=== PATIENT | male | born 1980 ===

== ENCOUNTER 2019-02-02 11:32 | Observation (INO) | payer SELFPAY ==
[~2019-02-02] VITALS: Ht 180.3 cm; Wt 72.6 kg
[2019-02-02 12:10] LABS: Source, Urine Clean Catch
[2019-02-02 12:30] LABS: Appearance, Urine Clear (Clear); Bilirubin, Urine Neg (Neg); Blood, Urine Neg (Neg); Color, Urine Yellow (P-Yellow); Glucose Qualitative, Urine Neg (Neg); Ketones, Urine Neg (Neg); Leukocyte Esterase, Urine 1+ (Neg); Nitrite, Urine Neg (Neg); Protein, Urine Neg (Neg); Specific Gravity, Urine 1.015 (1.003-1.022); Urobilinogen, Urine NORM (Normal); pH, Urine 6.5 (5.0-8.0)
[2019-02-02 12:39] LABS: Bacteria Rare /hpf; Mucus Light (0-Heavy); Red Blood Cells, Urine 0-2 /hpf (0-2); Squamous Epithelial Cells Not Seen /hpf (Few)
[2019-02-02 13:02] LABS: U Amphetamine Screen Not Detected; U Barbituate Screen Not Detected; U Benzodiazapine Screen Not Detected; U Buprenorphine Screen Not Detected; U Cannabinoids Screen DETECTED; U Cocaine Screen Not Detected; U Methadone Screen Not Detected; U Methamphetamine Screen DETECTED; U Opiates Screen Not Detected; U Oxycodone Screen Not Detected; U Phencyclidine Screen Not Detected; U Propoxyphene Screen Not Detected
[2019-02-02 13:23] LABS: BASOPHILS ABSOLUTE AUTO 0.05 K/mm3 (0.00-0.23); BASOPHILS PERCENT AUTO 1 % (0-2); EOSINOPHILS ABSOLUTE AUTO 0.14 K/mm3 (0.00-0.68); EOSINOPHILS PERCENT AUTO 2 % (0-6); Hematocrit 40.2 % (37.0-53.0); Hemoglobin 12.8 g/dL (13.5-17.5); IMMATURE GRAN ABSOLUTE AUTO 0.02 K/mm3 (0.00-0.10); IMMATURE GRAN PERCENT AUTO 0 % (0-1); LYMPHOCYTES ABSOLUTE AUTO 1.77 K/mm3 (0.84-5.20); LYMPHOCYTES PERCENT AUTO 27 % (21-46); MONOCYTES ABSOLUTE AUTO 0.45 K/mm3 (0.16-1.47); MONOCYTES PERCENT AUTO 7 % (4-13); Mean Corpuscular HGB 30.4 pg (26.0-34.0); Mean Corpuscular HGB Conc 31.8 g/dL (31.5-36.5); Mean Corpuscular Volume 96 fL (80-100); Mean Platelet Volume 9.6 fL (9.1-12.4); NEUTROPHILS ABSOLUTE AUTO 4.26 K/mm3 (1.96-9.15); NEUTROPHILS PERCENT AUTO 64 % (41-73); Platelet Count 340 K/mm3 (150-400); RDW Coefficient Variation 16.2 % (11.7-14.2); RDW Standard Deviation 56.6 fL (35.1-46.3); Red Blood Cell Count 4.21 M/mm3 (4.30-5.90); White Blood Cell Count 6.69 K/mm3 (4.00-11.30)
[2019-02-02 13:39] LABS: Alanine Aminotransfer (ALT/SGP 309 U/L (12-78); Albumin, Blood 3.7 g/dL (3.4-5.0); Albumin/Globulin Ratio 1.1 (0.8-1.8); Alk Phos 105 U/L (50-136); Anion Gap 8 mmol/L (6-16); Aspartate Aminotrans (AST/SGOT 137 U/L (12-37); Bilirubin, Total 0.6 mg/dL (0.1-1.0); Blood Urea Nitrogen 10 mg/dL (8-24); Bun/Creatinine Ratio 11.4 (12.0-20.0); CO2, Blood 28 mmol/L (21-32); Calcium, Blood 8.7 mg/dL (8.5-10.1); Chloride, Blood 104 mmol/L (98-108); Creatinine, Blood 0.88 mg/dL (0.60-1.20); Ethanol (Alcohol), Blood, Med <3 mg/dL; Globulin, Blood 3.5 g/dL (2.2-4.0); Glomerular Filtration Rate >60 (60-); Glucose, Blood 116 mg/dL (70-99); Potassium, Blood 3.9 mmol/L (3.5-5.5); Salicylate <1.7 mg/dL (2.8-20.0); Sodium, Blood 140 mmol/L (136-145); Total Protein, Blood 7.2 g/dL (6.4-8.2)
[2019-02-02 13:45] LABS: Thyroid Stimulating Hormone 0.159 uIU/mL (0.360-4.800)
[2019-02-02 13:48] LABS: Acetaminophen, Random <2.0 ug/mL (10.0-30.0)
== END 2019-02-03 21:29 ==
LOC: ER 11:32 → EOR 11:33
PROVIDERS: ADMIT Internal Medicine
DX: F32.9 Major depressive disorder, single episode, unspecified (principal); F15.959 Other stimulant use, unspecified with stimulant-induced psychotic disorder, unspecified; F17.200 Nicotine dependence, unspecified, uncomplicated; Z88.8 Allergy status to other drugs, medicaments and biological substances
CPT/HCPCS: 36415; 80053; 81001; 84443; 85025; 87086; 93005; 93010; 99285-25; G0378; G0480; Q3014